=== PATIENT | female | born 1995 | race Caucasian/White ===

== ENCOUNTER 2017-01-06 13:45 | Emergency (ER) | payer MEDICAID ==
[2017-01-06 13:56] VITALS: BP 130/70
[2017-01-06] MEDS ORDERED: Sodium Chloride 0.9% 10 ML Syringe FLUSH PRN (14:10)
[2017-01-06] MEDS ORDERED: Ondansetron 4 MG/2 ML SDV IVPUSH ONE (14:10)
[2017-01-06] MEDS ORDERED: Sodium Chloride 0.9% 1,000 ML IV SCH (14:15)
--- NOTE | 2017-01-06 14:40 | EDM.PDOC ---
ED HPI GI/ABDOMINAL - General Chief Complaint: Gastrointestinal Problem Stated Complaint: NAUSEA Time Seen by Provider: 01/06/17 13:54 Source of Information: Reports: Patient, RN notes reviewed - History of Present Illness INITIAL COMMENTS - FREE TEXT/NARRATIVE: 21-year-old female comes in with nausea vomiting and also some diarrhea. She is about 7 weeks . She is 2 para one. She states she started with nausea and vomiting about one week ago. She also has been having some occasional mild diarrhea. She went to the walk-in clinic a short time ago and he did refer her to us here in the ED. At this time she has no abdominal pain or cramping. She has not been having any bleeding or spotting. Her mouth does feel dry. She's had very little to drink today and has not been eating today. - Related Data Allergies/ADRs: Allergies Allergy/AdvReac Type Severity Reaction Status Date / Time No Known Allergies Allergy Unverified 01/06/17 13:56 Home Meds: Home Meds . [No Known Home Meds] 01/06/17 [History] Past Medical History - Past Health History Medical/Surgical History: Denies Medical/Surgical History Gastrointestinal History: Reports: Cholelithiasis Social & Family History - Family History Family Medical History: Noncontributory - Tobacco Use Smoking Status *Q: Never Smoker - Caffeine Use Caffeine Use: Reports: None - Recreational Drug Use Recreational Drug Use: No ED ROS GENERAL - Review of Systems Review Of Systems: See Below Constitutional: Denies: fever, chills HEENT: Denies: Throat pain Respiratory: Denies: Shortness of Breath Cardiovascular: Denies: Chest pain GI/Abdominal: Reports: Abdominal pain (Occasional mild cramping), Diarrhea, Nausea, Vomiting : Reports: no symptoms, other (No bleeding or spotting). Denies: dysuria, pain Musculoskeletal: Denies: back pain Skin: Reports: no symptoms Neurological: Reports: Dizziness (Mild when standing) ED EXAM, GI/ABD - Physical Exam Exam: See Below General Appearance: alert, no apparent distress Eyes: bilateral: normal appearance Throat/Mouth: Normal inspection, Other (Oral mucosa is mildly dry) Head: No: facial swelling Neck: supple, full range of motion Respiratory/Chest: no respiratory distress, lungs clear, normal breath sounds Cardiovascular: regular rate, rhythm GI/Abdominal: soft, non tender. No: guarding Back Exam: No: CVA tenderness (L), CVA tenderness (R) Extremities: No: pedal edema, leg pain Neurological: alert, oriented, no motor/sensory deficits Skin Exam: Warm, Dry, Normal color Course - Vital Signs Last Recorded V/S: Last Vital Signs Temp 97.7 F 01/06/17 13:52 Pulse 86 01/06/17 13:52 Resp 18 01/06/17 13:52 BP 130/70 01/06/17 13:52 Pulse Ox 100 01/06/17 13:52 Orthostatic Blood Pressure [ 102/61 Standing] Orthostatic Blood Pressure [ 115/59 Sitting] Orthostatic Blood Pressure [ 110/44 Supine] - Orders/Labs/Meds Orders: Active Orders 24 hr Category Date Time Status Peripheral IV Care [RC] . DIRECTED Care 01/06/17 14:10 Active Peripheral IV Insertion Adult [OM.PC] Stat Oth 01/06/17 14:10 Ordered Meds: Medications Discontinued Medications Generic Name Dose Route Start Last Admin Trade Name Oziel PRN Reason Stop Dose Admin Sodium Chloride 1,000 mls @ 999 mls/hr 01/06/17 14:15 01/06/17 14:22 Normal Saline IV 999 mls/hr ONETIME KESHA Administration Ondansetron HCl 4 mg 01/06/17 14:10 01/06/17 14:22 Zofran IVPUSH 01/06/17 14:11 4 mg ONETIME ONE Administration Sodium Chloride 10 ml 01/06/17 14:10 01/06/17 14:20 Saline Flush FLUSH 10 ml ASDIRECTED PRN Administration Keep Vein Open - Re-Assessments/Exams Free Text/Narrative Re-Assessment/Exam: 01/06/17 18:21. Patient felt much better after 1 L of IV fluid, Zofran 4 mg IV. Discharge instructions as documented Departure - Departure Time of Disposition: 15:49 Disposition: Home, Self-Care 01 Condition: fair Clinical Impression: First trimester Vomiting Qualifiers: Vomiting type: unspecified Vomiting Intractability: non-intractable Nausea presence: with nausea Qualified Code(s): R11.2 - Nausea with vomiting, unspecified Instructions: First Trimester of , [id number], Nausea and Vomiting, Adult, [id number] Referrals: PCP,None [Primary Care Provider] - Forms: ED Department Discharge Additional Instructions: Clear liquids and bland diet as tolerated, try using yael right as discussed to help with the nausea and vomiting. If nausea and vomiting continues then I suggest trying to get in to see Dr. Lenz before your early February appointment. Call clinic as needed to try get in to see her at an earlier date. Return to ED as needed. - My Orders Last 24 Hours: My Active Orders 01/06/17 14:10 Peripheral IV Care [RC] . DIRECTED Peripheral IV Insertion Adult [OM.PC] Stat - Assessment/Plan Last 24 Hours: My Active Orders 01/06/17 14:10 Peripheral IV Care [RC] . DIRECTED Peripheral IV Insertion Adult [OM.PC] Stat
== END 2017-01-06 16:00 | disposition home or self-care (01) ==
LOC: JD.ED 13:45
DX: O21.9 Vomiting of pregnancy, unspecified (principal); Z3A.01 Less than 8 weeks gestation of pregnancy
CPT/HCPCS: 96361; 96374; 99283; J2405; J7040; J7050; 99284